=== PATIENT | male | born 1990 | race Caucasian/White ===

== ENCOUNTER 2017-01-20 11:28 | Inpatient (IN) | payer OTHER ==
--- NOTE | 2017-01-20 12:05 | PDOC ---
History of Present Illness - General History Source: Patient Exam Limitations: No Limitations - History of Present Illness Initial Comments: 01/20/17 12:09 The patient is a 26 year old male, with no significant past medical history who presents to the emergency department with abdominal pain and nausea since last night. The patient reports having sharp pain on his right side that radiates to his lower back area. He ranks his pain a 7/10 in pain intensity. He denies any recent fevers, chills, headache or dizziness. He denies any recent vomit, diarrhea or constipation. He denies any recent chest pain or shortness of breath. He denies any recent dysuria, frequency, urgency or hematuria. Allergies: NKA Past surgical history: None reported. Social History: Current everyday. Denies EtOH use and recreational drug use. <Rico Olvera - Last Filed: 01/20/17 12:09> <Glenroy Strickland - Last Filed: 01/20/17 15:24> - General Chief Complaint: Pain Stated Complaint: ABD PAIN Past History <Rico Olvera - Last Filed: 01/20/17 12:09> - Past Medical History Other medical history: NONE - Suicide/Smoking/Psychosocial Hx Smoking History: Current some day smoker Number of Cigarettes Smoked Daily: 2 Information on smoking cessation initiated: No Hx Alcohol Use: Yes (SOCIAL) Drug/Substance Use Hx: No <Glenroy Strickland - Last Filed: 01/20/17 15:24> - Past Medical History Allergies/Adverse Reactions: Allergies Allergy/AdvReac Type Severity Reaction Status Date / Time No Known Allergies Allergy Verified 01/20/17 11:37 Home Medications: Ambulatory Orders NK [No Known Home Medication] 01/20/17 Review of Systems - Review of Systems Able to Perform ROS?: Yes Comments:: 01/20/17 12:10 GENERAL/CONSTITUTIONAL: No fever or chills. No weakness. HEAD, EYES, EARS, NOSE AND THROAT: No change in vision. No ear pain or discharge. No sore throat. CARDIOVASCULAR: No chest pain or shortness of breath. RESPIRATORY: No cough, wheezing, or hemoptysis. GASTROINTESTINAL: +abdominal pain and nausea. No vomiting, diarrhea or constipation. GENITOURINARY: No dysuria, frequency, or change in urination. MUSCULOSKELETAL: No joint or muscle swelling or pain. No neck or back pain. SKIN: No rash NEUROLOGIC: No headache, vertigo, loss of consciousness, or change in strength/ sensation. ENDOCRINE: No increased thirst. No abnormal weight change. HEMATOLOGIC/LYMPHATIC: No anemia, easy bleeding, or history of blood clots. ALLERGIC/IMMUNOLOGIC: No hives or skin allergy. <Rico Olvera - Last Filed: 01/20/17 12:09> *Physical Exam - Vital Signs Last Vital Signs Temp Pulse Resp BP Pulse Ox 98.4 F 79 20 127/75 97 01/20/17 11:34 01/20/17 11:34 01/20/17 11:34 01/20/17 11:34 01/20/17 11:34 - Physical Exam Comments: 01/20/17 12:10 GENERAL: Awake, alert, and fully oriented, in no acute distress HEAD: No signs of trauma EYES: PERRLA, EOMI, sclera anicteric, conjunctiva clear ENT: Auricles normal inspection, hearing grossly normal, nares patent, oropharynx clear without exudates. Moist mucosa NECK: Normal ROM, supple, no lymphadenopathy, JVD, or masses LUNGS: Breath sounds equal, clear to auscultation bilaterally. No wheezes, and no crackles HEART: Regular rate and rhythm, normal S1 and S2, no murmurs, rubs or gallops ABDOMEN: Soft, tenderness RUQ, normoactive bowel sounds. No guarding, no rebound. No masses EXTREMITIES: Normal range of motion, no edema. No clubbing or cyanosis. No cords, erythema, or tenderness NEUROLOGICAL: Cranial nerves II through XII grossly intact. Normal speech, normal gait SKIN: Warm, Dry, normal turgor, no rashes or lesions noted. <Rico Olvera - Last Filed: 01/20/17 12:09> - Vital Signs Last Vital Signs Temp Pulse Resp BP Pulse Ox 98.4 F 79 20 127/75 97 01/20/17 11:34 01/20/17 11:34 01/20/17 11:34 01/20/17 11:34 01/20/17 11:34 <Glenroy Strickland - Last Filed: 01/20/17 15:24> ED Treatment Course - LABORATORY CBC & Chemistry Diagram: 01/20/17 12:30 01/20/17 12:30 <Glenroy Strickland - Last Filed: 01/20/17 15:24> *DC/Admit/Observation/Transfer - Attestations Scribe Attestion: 01/20/17 12:10 Documentation prepared by Rico Olvera, acting as medical secretary for Glenroy Strickland DO. <Rico Olvera - Last Filed: 01/20/17 12:09> - Discharge Dispostion Admit: Yes - Attestations Physician Attestion: 01/20/17 12:05 I, Dr. Glenroy Strickland, attest that this document has been prepared under my direction and personally reviewed by me in its entirety. I further attest, that it accurately reflects all work, treatment, procedures and medical decision -making performed by me. <Glenroy Strickland - Last Filed: 01/20/17 15:24> Diagnosis at time of Disposition: Intractable abdominal pain, Biliary colic Gallstone Qualifiers: Cholecystitis presence: with cholecystitis Cholecystitis acuity: acute and chronic Biliary obstruction: without biliary obstruction Qualified Code(s): K80.12 - Calculus of gallbladder with acute and chronic cholecystitis without obstruction - Discharge Dispostion Condition at time of disposition: Unchanged/Unknown
[2017-01-20] MEDS ORDERED: ONDANSETRON 4 MG/2 ML VIAL IVPUSH ONE ×2 (12:09→15:37)
[2017-01-20] MEDS ORDERED: HYDROmorphone HCL CARPU-JECT 1 MG/1 ML DISP.SYRIN IVPUSH ONE (12:09)
[2017-01-20] MEDS ORDERED: SODIUM CHLORIDE 1,000 ML IV STA (12:09)
[2017-01-20] MEDS ORDERED: ONDANSETRON 4 MG/2 ML VIAL ONE ×2 (12:39→15:49)
[2017-01-20] MEDS ORDERED: HYDROmorphone HCL CARPU-JECT 1 MG/1 ML DISP.SYRIN ONE ×2 (12:39→15:49)
[2017-01-20 13:13] LABS: BASOPHIL 0.3 % (0-2.0); EOSINOPHIL 2.2 % (0-4.5); MCHC 30.2 g/dl (32.0-35.9); MEAN CELL VOLUME 61.6 fl (80-96); MEAN PLT VOLUME 9.1 fl (7.5-11.1); NEUTROPHILS 62.2 % (42.8-82.8); PLATELET COUNT 232 K/MM3 (134-434); RDW 19.8 % (11.9-15.9); WHITE BLOOD COUNT 7.1 K/mm3 (4.0-10.0)
[2017-01-20 13:22] LABS: MCH 18.6 pg (25.7-33.7)
[2017-01-20 13:34] LABS: INR 1.13 (0.82-1.09); PROTHROMBIN TIME (PATIENT) 12.5 SEC (9.98-11.88)
[2017-01-20 13:43] LABS: ANISOCYTOSIS 1+; HYPOCHROMIA 1+; MICROCYTOSIS 1+; PLATELET ESTIMATE ADEQUATE (NORMAL); POLYCHROMASIA F
[2017-01-20 14:03] LABS: ALBUMIN 3.6 g/dl (3.4-5.0); ALK PHOS 86 U/L (45-117); ANION GAP 12 (8-16); BILIRUBIN,TOTAL 0.4 mg/dL (0.2-1.0); CALCIUM 8.9 mg/dL (8.5-10.1); CO2 22 mmol/L (21-32); CREATININE 0.7 mg/dL (0.7-1.3); GLUCOSE,RANDOM 89 mg/dL (74-106); SGOT/AST 23 U/L (15-37); SGPT/ALT 33 U/L (12-78); TOT PROT 6.8 g/dl (6.4-8.2)
--- NOTE | 2017-01-20 15:30 | HP ---
CHIEF COMPLAINT: abdominal pain PCP:none HISTORY OF PRESENT ILLNESS: 26 yo M with no significant PMHx who presents to the ED with abdominal pain and nausea since last night.Patient reports sharp intermittent 7/10 RUQ abd pain that radiated to back.No alleviating or aggravating factors. Pain started after a fatty meal of [place] fries and chicken wings. Endorses nausea but no vomiting. No such pain in past. He denies any CP,BREAUX, SOB, palpitations, diarrhea or constipation. ER course was notable for: (1)Gallbladder US shows cholelithiasis. (2)Needed IV dilaudid for pain control (3) surgery consulted - Dr. Benitez Recent Travel:denies PAST MEDICAL HISTORY:none PAST SURGICAL HISTORY:none Social History: Smokin pack year history, currently 5-6 cig/week Alcohol:socially Drugs: denies Family History: Mother( gallstones) ; Father (HTN) Allergies No Known Allergies Allergy (Verified 01/20/17 11:37) HOME MEDICATIONS: Home Medications Medication Instructions Recorded NK [No Known Home Medication] 01/20/17 REVIEW OF SYSTEMS CONSTITUTIONAL: Absent: fever, chills, diaphoresis, generalized weakness, malaise, loss of appetite, weight change HEENT: Absent: rhinorrhea, nasal congestion, throat pain, throat swelling, difficulty swallowing, mouth swelling, ear pain, eye pain, visual changes CARDIOVASCULAR: Absent: chest pain, syncope, palpitations, irregular heart rate, lightheadedness , peripheral edema RESPIRATORY: Absent: cough, shortness of breath, dyspnea with exertion, orthopnea, wheezing, stridor, hemoptysis GASTROINTESTINAL:abdominal pain, nausea Absent: , abdominal distension,, vomiting, diarrhea, constipation, melena, hematochezia GENITOURINARY: Absent: dysuria, frequency, urgency, hesitancy, hematuria, flank pain, genital pain MUSCULOSKELETAL: Absent: myalgia, arthralgia, joint swelling, back pain, neck pain SKIN: Absent: rash, itching, pallor HEMATOLOGIC/IMMUNOLOGIC: Absent: easy bleeding, easy bruising, lymphadenopathy, frequent infections ENDOCRINE: Absent: unexplained weight gain, unexplained weight loss, heat intolerance, cold intolerance NEUROLOGIC: Absent: headache, focal weakness or paresthesias, dizziness, unsteady gait, seizure, mental status changes, bladder or bowel incontinence PSYCHIATRIC: Absent: anxiety, depression, suicidal or homicidal ideation, hallucinations. PHYSICAL EXAMINATION Vital Signs - 24 hr 01/20/17 11:34 Temperature 98.4 F Pulse Rate 79 Respiratory 20 Rate Blood Pressure 127/75 O2 Sat by Pulse 97 Oximetry (%) GENERAL: Awake, alert, and fully oriented, in no acute distress. HEAD: Normal with no signs of trauma. EYES: PERRLA, EOMI , sclera anicteric, conjunctiva clear. No lid lag. EARS, NOSE, THROAT: Moist mucous membranes. NECK:supple, No JVD LUNGS: CTAB. No wheezes, and no crackles. No accessory muscle use. HEART: RRR, normal S1 and S2 , no m/g/r ABDOMEN: Soft, RUQ tenderness, not distended, normoactive bowel sounds, no guarding, no rebound, no masses. No hepatomegaly or splenomegaly. MUSCULOSKELETAL: Normal range of motion at all joints. right martin tenderness. No CVA tenderness. UPPER EXTREMITIES: 2+ pulses, warm, well-perfused. No cyanosis. No clubbing. No peripheral edema. LOWER EXTREMITIES: 2+ pulses, warm, well-perfused. No calf tenderness. No peripheral edema. NEUROLOGICAL: Cranial nerves II-XII intact. Normal speech. gait not observed. PSYCHIATRIC: Cooperative. Good eye contact. Appropriate mood and affect. Laboratory Results - last 24 hr 01/20/17 01/20/17 01/20/17 12:30 12:30 12:30 WBC 7.1 RBC 5.67 H Hgb 10.5 L Hct 34.9 L MCV 61.6 L MCH 18.6 L MCHC 30.2 L RDW 19.8 H Plt Count 232 MPV 9.1 Neutrophils % 62.2 Lymphocytes % 26.5 Monocytes % 8.8 Eosinophils % 2.2 Basophils % 0.3 Hypochromia 1+ Platelet Estimate Adequate Platelet Comment No clumping noted Polychromasia F Anisocytosis 1+ Microcytosis 1+ PT with INR 12.50 H INR 1.13 Sodium 138 Potassium 3.8 Chloride 104 Carbon Dioxide 22 Anion Gap 12 BUN 7 Creatinine 0.7 Creat Clearance w eGFR > 60 Random Glucose 89 Calcium 8.9 Total Bilirubin 0.4 AST 23 ALT 33 Alkaline Phosphatase 86 Total Protein 6.8 Albumin 3.6 Lipase 146 Blood Type Antibody Screen 01/20/17 12:30 WBC RBC Hgb Hct MCV MCH MCHC RDW Plt Count MPV Neutrophils % Lymphocytes % Monocytes % Eosinophils % Basophils % Hypochromia Platelet Estimate Platelet Comment Polychromasia Anisocytosis Microcytosis PT with INR INR Sodium Potassium Chloride Carbon Dioxide Anion Gap BUN Creatinine Creat Clearance w eGFR Random Glucose Calcium Total Bilirubin AST ALT Alkaline Phosphatase Total Protein Albumin Lipase Blood Type O POSITIVE Antibody Screen Negative ASSESSMENT/PLAN: The patient is a 26 year old male, with no significant past medical history who presents to the emergency department with abdominal pain and nausea since last night admitted to med/surg for cholelithiasis and intractable abdominal pain for possible cholecystectomy. Problem List - Problem (1) Cholelithiasis Assessment/Plan: * US showed stones but no signs of cholecystitis. * Requires IV pain meds * Dr. Benitez consulted will perform cholecystectomy * NPO for now. * Zofran for nausea. * Coags and type/screen sent. (2) Biliary colic (3) Intractable abdominal pain Visit type - Emergency Visit Emergency Visit: Yes ED Registration Date: 01/20/17 Care time: The patient presented to the Emergency Department on the above date and was hospitalized for further evaluation of their emergent condition. - New Patient This patient is new to me today: Yes Date on this admission: 01/20/17 - Critical Care Critical Care patient: No
[2017-01-20] MEDS ORDERED: HYDROmorphone HCL CARPU-JECT 1 MG/1 ML DISP.SYRIN IVPB ONE (15:37)
[2017-01-20] MEDS ORDERED: ONDANSETRON 4 MG/2 ML VIAL IVPB PRN (16:00)
[2017-01-20] MEDS ORDERED: HYDROmorphone HCL CARPU-JECT 1 MG/1 ML DISP.SYRIN IVPUSH PRN (16:00)
[2017-01-20] MEDS: SODIUM CHLORIDE 1,000 ML IV SCH (16:48)
--- NOTE | 2017-01-20 17:13 | HP ---
CHIEF COMPLAINT: Abdominal pain PCP: HISTORY OF PRESENT ILLNESS: The patient is a 26 yo m w/ no PMH who comes into the ED c/o abdominal pain and nausea for the past 1 day. The patient states that at 12AM this morning, he began to experience squeezing, 8/10 abdominal pain in his RUQ which radiated along his flank and to his back on the right. This pain eventually migrated to the right lower quadrant over time. The patient states that the pain was constant and not relieved by any intervention but went away at around 5 am. The pain returned at 10am and the patient decided to come to the ED. During his trip to the hospital, the pain began to be associated with nausea. The patient had no major changes in his diet during this time and does not associate the pain with eating. He does endorse, however, having a diet which consists primarily pizza and other takeout foods. His last meal was yesterday evening. He has had several similar episodes of this pain in the past, but they were never this severe and always went away spontaneously. The patient denies chest pain, shortness of breath, fever, chills, diarrhea or sick contacts. ER course was notable for: (1) RUQ u/s showing cholelithiasis (2) (3) Recent Travel: PAST MEDICAL HISTORY: -none PAST SURGICAL HISTORY: -none Social History: Smoking: smokes some days with an average of 2 cigarettes per day. Alcohol: denies Drugs: denies Family History: non-contributory Allergies No Known Allergies Allergy (Verified 01/20/17 11:37) HOME MEDICATIONS: Home Medications Medication Instructions Recorded NK [No Known Home Medication] 01/20/17 REVIEW OF SYSTEMS CONSTITUTIONAL: Absent: fever, chills, diaphoresis, generalized weakness, malaise, loss of appetite, weight change HEENT: Absent: rhinorrhea, nasal congestion, throat pain, throat swelling, difficulty swallowing, mouth swelling, ear pain, eye pain, visual changes CARDIOVASCULAR: Absent: chest pain, syncope, palpitations, irregular heart rate, lightheadedness , peripheral edema RESPIRATORY: Absent: cough, shortness of breath, dyspnea with exertion, orthopnea, wheezing, stridor, hemoptysis GASTROINTESTINAL: Absent: abdominal distension, vomiting, diarrhea, constipation, melena, hematochezia GENITOURINARY: Absent: dysuria, frequency, urgency, hesitancy, hematuria, flank pain, genital pain MUSCULOSKELETAL: Absent: myalgia, arthralgia, joint swelling, back pain, neck pain SKIN: Absent: rash, itching, pallor HEMATOLOGIC/IMMUNOLOGIC: Absent: easy bleeding, easy bruising, lymphadenopathy, frequent infections ENDOCRINE: Absent: unexplained weight gain, unexplained weight loss, heat intolerance, cold intolerance NEUROLOGIC: Absent: headache, focal weakness or paresthesias, dizziness, unsteady gait, seizure, mental status changes, bladder or bowel incontinence PSYCHIATRIC: Absent: anxiety, depression, suicidal or homicidal ideation, hallucinations. PHYSICAL EXAMINATION Vital Signs - 24 hr 01/20/17 01/20/17 15:34 16:33 Temperature 97.3 F L Pulse Rate [ 55 L 52 L Apical] Blood Pressure 127/80 137/91 [Left Arm] O2 Sat by Pulse 96 98 Oximetry (%) GENERAL: Awake, alert, and fully oriented, in no acute distress. HEAD: Normal with no signs of trauma. EYES: extraocular movements intact, sclera anicteric, conjunctiva clear. No lid lag. NECK: Normal range of motion, supple, no JVD. LUNGS: Breath sounds equal, clear to auscultation bilaterally. No wheezes, and no crackles. No accessory muscle use. HEART: Regular rate and rhythm, normal S1 and S2 without murmur, rub or gallop. ABDOMEN: Soft, tenderness to palpation in right quadrants. Rowe's sign negative, not distended, normoactive bowel sounds, no guarding, no rebound, no masses. MUSCULOSKELETAL: Normal range of motion at all joints. No bony deformities or tenderness. No CVA tenderness. UPPER EXTREMITIES: 2+ pulses, warm, well-perfused. No cyanosis. No clubbing. No peripheral edema. LOWER EXTREMITIES: 2+ pulses, warm, well-perfused. No calf tenderness. No peripheral edema. NEUROLOGICAL: Cranial nerves II-x intact. Normal speech. Normal gait. PSYCHIATRIC: Cooperative. Good eye contact. Appropriate mood and affect. SKIN: Warm, dry, normal turgor, no rashes or lesions noted, normal capillary refill. ASSESSMENT/PLAN: This is a 26 yo m w/ no PMH who comes in complaining of colicky abdominal pain on the right side which radiates to the back. #billiary colic 2/2 cholelithiasis -RUQ u/s shows cholelithiasis w/o cholecystitis or dilation of billiary tree -afebrile, no white count; no indication for ABX at this time -Dr. Benitez consulted, has accepted patient for lap natalee. -NPO -NS @ 100 -dilaudid 1mg Q4 PRN pain -AM CBC, CMP, MAG, PHOS -zofran 4 mg Q6 PRN nausea #FEN -NS @ 100 -monitor lytes -NPO #Prophylaxsis -SCDs -no indication for GI prophy #Dispo -admit to med surg for lap natalee Problem List - Problem (1) Biliary colic Code(s): K80.50 - CALCULUS OF BILE DUCT W/O CHOLANGITIS OR CHOLECYST W/O OBST (2) Cholelithiasis Code(s): K80.20 - CALCULUS OF GALLBLADDER W/O CHOLECYSTITIS W/O OBSTRUCTION Visit type - Emergency Visit Emergency Visit: Yes ED Registration Date: 01/20/17 Care time: The patient presented to the Emergency Department on the above date and was hospitalized for further evaluation of their emergent condition. - New Patient This patient is new to me today: Yes Date on this admission: 01/20/17 - Critical Care Critical Care patient: No
--- NOTE | 2017-01-20 17:38 | PN ---
Teaching Attending Note Name of Resident: Wilfredo Baxter ATTENDING PHYSICIAN STATEMENT I saw and evaluated the patient. I reviewed the resident's note and discussed the case with the resident. I agree with the resident's findings and plan as documented. SUBJECTIVE:26yo M with no PMH presented with RUQ pain. started last night, cramping 8/10 pain radiating down his R side. Pain started last night but was able to sleep. was worse this AM assoc with nausea and vomiting. states he been having intermittent pain not as severe over the past year which would self resolve. denies CP, SOB, fever, chills, C/D OBJECTIVE: Last Vital Signs Temp Pulse Resp BP Pulse Ox 97.3 F L 52 L 20 137/91 98 01/20/17 16:33 01/20/17 16:33 01/20/17 11:34 01/20/17 16:33 01/20/17 16:33 General NAD CV S1 S2 RRR no murmur/rub/gallop Lungs CTA B/L no wheezing/rales/rhonchi Abdomen soft +RLQ and LLQ pain no rebound or guarding. negative rovsing sign. negative rae sign. hypoactive BS ASSESSMENT AND PLAN: 26yo M with no PMH presented to the ER with RUQ pain 1. Biliary colic- medicine admission. U/s + cholethasis. no signs of acute cholecysitis. likely been having repeated episodes of biliary colic. NPO for laprasocopic cholecystectomy. start IVF, pain and nausea control. will hold abx at this time as no fever or leukocytosis. will f/u post-operative report. 2. Microcytic anemia- no signs of bleeding, with high RDW high liklihood for iron deficiency anemia. check iron studies. repeat Cbc. txn for hgb >7 3. Asymptomatic bradycardia- no report of history but has not seen PMD. will monitor for now 4. DVT ppx- EAM. can start post op lovenox
[2017-01-20 18:11] VITALS: BMI 38.6
[2017-01-20] MEDS: HYDROmorphone HCL CARPU-JECT 2 MG/1 ML DISP.SYRIN IVPUSH PRN ×2 (18:25→21:53)
--- NOTE | 2017-01-20 22:56 | CONSULT ---
Consult Consult Specialty:: Surgery Reason for Consultation:: RUQ pain - History of Present Illness History of Present Illness: 26 male presents to the ER with significant RUQ pain 1st episode No fevers/chills Pain only controlled somewhat with IV pain medication No nausea/vomiting U/S shows + gallstones - History Source History Provided By: Patient, Medical Record Limitations to Obtaining History: No Limitations - Alcohol/Substance Use Hx Alcohol Use: Yes (SOCIAL) - Smoking History Smoking history: Current some day smoker Aproximately how many cigarettes per day: 2 Home Medications - Allergies Allergies/Adverse Reactions: Allergies Allergy/AdvReac Type Severity Reaction Status Date / Time No Known Allergies Allergy Verified 01/20/17 11:37 - Home Medications Home Medications: Ambulatory Orders NK [No Known Home Medication] 01/20/17 Family Disease History - Family Disease History Family History: Denies Review of Systems - Review of Systems Constitutional: denies: Chills, Fever HENT: reports: No Symptoms Neck: reports: No Symptoms Cardiovascular: denies: Chest Pain Respiratory: denies: Cough Gastrointestinal: reports: Abdominal Pain. denies: Diarrhea, Nausea, Vomiting Integumentary: reports: No Symptoms Neurological: denies: Change in LOC Pain Intensity: 4 Physical Exam Vital Signs: Vital Signs Temperature 98.4 F 01/20/17 18:14 Pulse Rate 58 L 01/20/17 18:14 Respiratory Rate 20 01/20/17 18:14 Blood Pressure 137/72 01/20/17 18:14 O2 Sat by Pulse Oximetry (%) 100 01/20/17 19:28 Constitutional: Yes: No Distress, Calm Neck: Yes: WNL Cardiovascular: Yes: Regular Rate and Rhythm Respiratory: Yes: Regular Gastrointestinal: Yes: Soft, Tenderness (RUQ). No: Tenderness, Rebound Extremities: Yes: WNL Neurological: Yes: Alert, Oriented Labs: CBC,CMP WBC 7.1 K/mm3 (4.0-10.0) 01/20/17 12:30 RBC 5.67 M/mm3 (4.00-5.60) H 01/20/17 12:30 Hgb 10.5 GM/dL (11.7-16.9) L 01/20/17 12:30 Hct 34.9 % (35.4-49) L 01/20/17 12:30 MCV 61.6 fl (80-96) L 01/20/17 12:30 MCH 18.6 pg (25.7-33.7) L 01/20/17 12:30 MCHC 30.2 g/dl (32.0-35.9) L 01/20/17 12:30 RDW 19.8 % (11.9-15.9) H 01/20/17 12:30 Plt Count 232 K/MM3 (134-434) 01/20/17 12:30 MPV 9.1 fl (7.5-11.1) 01/20/17 12:30 Neutrophils % 62.2 % (42.8-82.8) 01/20/17 12:30 Lymphocytes % 26.5 % (8-40) 01/20/17 12:30 Monocytes % 8.8 % (3.8-10.2) 01/20/17 12:30 Eosinophils % 2.2 % (0-4.5) 01/20/17 12:30 Basophils % 0.3 % (0-2.0) 01/20/17 12:30 Hypochromia 1+ 01/20/17 12:30 Platelet Estimate Adequate (NORMAL) 01/20/17 12:30 Platelet Comment No clumping noted 01/20/17 12:30 Polychromasia F 01/20/17 12:30 Anisocytosis 1+ 01/20/17 12:30 Microcytosis 1+ 01/20/17 12:30 Sodium 138 mmol/L (136-145) 01/20/17 12:30 Potassium 3.8 mmol/L (3.5-5.1) 01/20/17 12:30 Chloride 104 mmol/L (98-107) 01/20/17 12:30 Carbon Dioxide 22 mmol/L (21-32) 01/20/17 12:30 Anion Gap 12 (8-16) 01/20/17 12:30 BUN 7 mg/dL (7-18) 01/20/17 12:30 Creatinine 0.7 mg/dL (0.7-1.3) 01/20/17 12:30 Creat Clearance w eGFR > 60 (>60) 01/20/17 12:30 Random Glucose 89 mg/dL (74-106) 01/20/17 12:30 Calcium 8.9 mg/dL (8.5-10.1) 01/20/17 12:30 Total Bilirubin 0.4 mg/dL (0.2-1.0) 01/20/17 12:30 AST 23 U/L (15-37) 01/20/17 12:30 ALT 33 U/L (12-78) 01/20/17 12:30 Alkaline Phosphatase 86 U/L (45-117) 01/20/17 12:30 Total Protein 6.8 g/dl (6.4-8.2) 01/20/17 12:30 Albumin 3.6 g/dl (3.4-5.0) 01/20/17 12:30 Lipase 146 U/L (73-393) 01/20/17 12:30 Imaging - Results Ultrasound: Report Reviewed, Image Reviewed Problem List - Problems (1) Biliary colic Code(s): K80.50 - CALCULUS OF BILE DUCT W/O CHOLANGITIS OR CHOLECYST W/O OBST (2) Intractable abdominal pain Code(s): R10.9 - UNSPECIFIED ABDOMINAL PAIN Assessment/Plan 26 male with biliary colic and significant pain NPO IV fluids Pain control For cholecystectomy in am Agrees
[2017-01-21] MEDS: HYDROmorphone HCL CARPU-JECT 2 MG/1 ML DISP.SYRIN IVPUSH PRN ×6 (00:59→17:02)
[2017-01-21] MEDS: SODIUM CHLORIDE 1,000 ML IV SCH ×2 (02:50→14:30)
[2017-01-21 07:28] LABS: BASOPHIL 0.4 % (0-2.0); EOSINOPHIL 1.6 % (0-4.5); MCHC 30.4 g/dl (32.0-35.9); MEAN CELL VOLUME 62.9 fl (80-96); MEAN PLT VOLUME 8.5 fl (7.5-11.1); NEUTROPHILS 64.8 % (42.8-82.8); PLATELET COUNT 215 K/MM3 (134-434); WHITE BLOOD COUNT 6.1 K/mm3 (4.0-10.0)
[2017-01-21 07:36] LABS: MCH 19.1 pg (25.7-33.7)
[2017-01-21 08:00] LABS: ALBUMIN 3.2 g/dl (3.4-5.0); ANION GAP 5 (8-16); BILIRUBIN,TOTAL 0.5 mg/dL (0.2-1.0); CALCIUM 8.4 mg/dL (8.5-10.1); CO2 27 mmol/L (21-32); CREATININE 0.8 mg/dL (0.7-1.3); GLUCOSE,RANDOM 89 mg/dL (74-106); MAGNESIUM 1.8 mg/dL (1.8-2.4); PHOSPHOROUS 3.8 mg/dL (2.5-4.9); SGOT/AST 22 U/L (15-37); SGPT/ALT 28 U/L (12-78); TOT PROT 6.1 g/dl (6.4-8.2)
[2017-01-21 08:01] LABS: ALK PHOS 71 U/L (45-117)
[2017-01-21 13:00] LABS: URINE APPEARANCE CLEAR; URINE BILIRUBIN NEGATIVE (NEGATIVE); URINE BLOOD NEGATIVE (NEGATIVE); URINE COLOR LTYELLOW; URINE GLUCOSE (UA) NEGATIVE (NEGATIVE); URINE KETONE NEGATIVE (NEGATIVE); URINE LEUK ESTERASE NEGATIVE (NEGATIVE); URINE NITRITE NEGATIVE (NEGATIVE); URINE PROTEIN NEGATIVE (NEGATIVE); URINE UROBILINOGEN NEGATIVE mg/dL (0.2-1.0)
--- NOTE | 2017-01-21 15:00 | PN ---
Teaching Attending Note Name of Resident: Wilfredo Baxter ATTENDING PHYSICIAN STATEMENT I saw and evaluated the patient. I reviewed the resident's note and discussed the case with the resident. I agree with the resident's findings and plan as documented. SUBJECTIVE:states pain is improved with pain medication. requesting to eat. admits to intermittent bright red blood mixed in his stool. states he was scheduled for colonoscopy 2 years ago but never followed through as he was scared. states he never sees it on the toilet paper or in the bowl. also admits to difficultly initiating urination. states has some "hesitation" when he goes to urinate and sensation of incomplete bladder emptying. denies Cp, SOB, fever, chills, melena or hematuria. has multiple family members with cancer, liver, gastric and lung. no hx of colon cancer states he has had significant weight loss over the summer but contributed to lifestyle changes and healthy diet. no loss of appetite, no lethargy or weakness OBJECTIVE: Last Vital Signs Temp Pulse Resp BP Pulse Ox 98.2 F 80 18 133/81 100 01/21/17 08:30 01/21/17 08:30 01/21/17 08:30 01/21/17 08:30 01/20/17 21:00 General mildly anxious Abdomen soft LLQ and RLQ tenderness radiating to the groin. no rebound or guarding. negative rovsing sign and rae sign rectal exam (done by resident in my presence) no external hemorrhoids. good rectal tone. no blood or stool in rectal vault. non palpable prostate ASSESSMENT AND PLAN: 26yo M with no PMH presented to the ER with RUQ pain 1. Biliary colic- with cholelithasis. improved with pain medication. has used significant amount of dilaudid. NPO for laprascopic cholecystectomy. Cont IVF, pain and nausea control. will hold abx at this time as no fever or leukocytosis. will f/u post-operative report. 2. Microcytic anemia- no signs of bleeding, AFTAB benign. Hgb stable. iron studies pending. f/u FOBT. will need GI follow up as outpatient for colonoscopy. txn for hgb >7 3. Asymptomatic bradycardia- improved with physical activity. now resolved. 4. URinary difficulty- check UA 5. DVT ppx- EAM.
--- NOTE | 2017-01-21 15:04 | PN ---
Physical Exam: SUBJECTIVE: Patient seen and examined at bedside. Patient is anxious today and wishes to leave AMA. I convinced him to stay and undergo a lap natalee today. He is also complaining of urinary hesitancy which developed while he was in the hospital. OBJECTIVE: Vital Signs Period Temp Pulse Resp BP Sys/Cage Pulse Ox Last 24 Hr 97.3 F-98.4 F 52-80 18-20 126-137/72-91 96-100 GENERAL: The patient is awake, alert, and fully oriented, in no acute distress. HEAD: Normal with no signs of trauma. EYES: extraocular movements intact, sclera anicteric, conjunctiva clear. No ptosis. NECK: Trachea midline, full range of motion, supple. LUNGS: Breath sounds equal, clear to auscultation bilaterally, no wheezes, no crackles, no accessory muscle use. HEART: Regular rate and rhythm, S1, S2 without murmur, rub or gallop. ABDOMEN: Soft, mild tenderness to palpation in all 4 quadrants, nondistended, normoactive bowel sounds, no guarding, no rebound. EXTREMITIES: 2+ pulses, warm, well-perfused, no edema. NEUROLOGICAL: Cranial nerves II through X grossly intact. Normal speech, gait not observed. PSYCH: Normal mood, normal affect. SKIN: Warm, dry, normal turgor, no rashes or lesions noted Laboratory Results - last 24 hr 01/21/17 01/21/17 01/21/17 06:00 06:00 06:00 WBC 6.1 RBC 5.31 Hgb 10.2 L Hct 33.4 L MCV 62.9 L MCH 19.1 L MCHC 30.4 L RDW 20.0 H Plt Count 215 MPV 8.5 Neutrophils % 64.8 Lymphocytes % 24.7 Monocytes % 8.5 Eosinophils % 1.6 Basophils % 0.4 Sodium 138 Potassium 4.0 Chloride 106 Carbon Dioxide 27 D Anion Gap 5 L BUN 7 Creatinine 0.8 Creat Clearance w eGFR > 60 Random Glucose 89 Calcium 8.4 L Phosphorus 3.8 Magnesium 1.8 Ferritin 3.433 L Total Bilirubin 0.5 D AST 22 ALT 28 Alkaline Phosphatase 71 Total Protein 6.1 L Albumin 3.2 L Urine Color Urine Appearance Urine pH Urine Protein Urine Glucose (UA) Urine Ketones Urine Blood Urine Nitrite Urine Bilirubin Urine Urobilinogen Stool Occult Blood 01/21/17 01/21/17 12:00 12:00 WBC RBC Hgb Hct MCV MCH MCHC RDW Plt Count MPV Neutrophils % Lymphocytes % Monocytes % Eosinophils % Basophils % Sodium Potassium Chloride Carbon Dioxide Anion Gap BUN Creatinine Creat Clearance w eGFR Random Glucose Calcium Phosphorus Magnesium Ferritin Total Bilirubin AST ALT Alkaline Phosphatase Total Protein Albumin Urine Color Ltyellow Urine Appearance Clear Urine pH 6.0 Urine Protein Negative Urine Glucose (UA) Negative Urine Ketones Negative Urine Blood Negative Urine Nitrite Negative Urine Bilirubin Negative Urine Urobilinogen Negative Stool Occult Blood Negative Active Medications Generic Name Dose Route Start Last Admin Trade Name Freq PRN Reason Stop Dose Admin Hydromorphone HCl 2 mg 01/20/17 18:05 01/21/17 13:50 Dilaudid Injection - IVPUSH 2 mg Q3H PRN Administration PAIN Sodium Chloride 1,000 mls @ 100 mls/hr 01/20/17 16:00 01/21/17 02:50 Normal Saline - IV 100 mls/hr ASDIR LIZ Administration Ondansetron HCl 4 mg 01/20/17 16:00 Zofran Injection IVPB Q6H PRN NAUSEA ASSESSMENT/PLAN: This is a 26 yo m w/ no PMH who comes in complaining of colicky abdominal pain on the right side which radiates to the back. #billiary colic 2/2 cholelithiasis -RUQ u/s shows cholelithiasis w/o cholecystitis or dilation of billiary tree -afebrile, no white count; no indication for ABX at this time -Dr. Benitez consulted, has accepted patient for lap natalee. -NPO -NS @ 100 -dilaudid 1mg Q4 PRN pain -zofran 4 mg Q6 PRN nausea #Microcytic anemia 2/2 to possible GI bleed -Patient endorses blood in the stool for the past year -FOBT negative -Rectal exam WNL -monitor CBC #Urinary hesitancy and lower abdominal pain -f/u bladder scan -no BPH appreciated on rectal exam -u/a not indicative of UTI #FEN -NS @ 100 -monitor lytes -NPO #Prophylaxsis -SCDs -no indication for GI prophy #Dispo -admit to med surg for lap natalee Problem List - Problems (1) Biliary colic Code(s): K80.50 - CALCULUS OF BILE DUCT W/O CHOLANGITIS OR CHOLECYST W/O OBST (2) Cholelithiasis Code(s): K80.20 - CALCULUS OF GALLBLADDER W/O CHOLECYSTITIS W/O OBSTRUCTION Visit type - Emergency Visit Emergency Visit: Yes ED Registration Date: 01/20/17 Care time: The patient presented to the Emergency Department on the above date and was hospitalized for further evaluation of their emergent condition. - New Patient This patient is new to me today: No - Critical Care Critical Care patient: No
[2017-01-21] MEDS ORDERED: MIDAZOLAM HCL 2 MG/2 ML SINGLE DOSE VIAL ONE (20:38)
[2017-01-21] MEDS ORDERED: ROCURONIUM BROMIDE 50 MG/5 ML VIAL ONE (20:39)
[2017-01-21] MEDS ORDERED: PROPOFOL 20 ML ONE ×2 (20:39→23:22)
[2017-01-21] MEDS ORDERED: ESMOLOL HCL 10 ML ONE (20:40)
[2017-01-21] MEDS ORDERED: ceFAZolin SODIUM 1 GM VIAL IVPB ONE (21:25)
[2017-01-21] MEDS ORDERED: LIDOCAINE HCL/PF 2% SDV 5ML VIAL ONE (22:06)
[2017-01-21] MEDS ORDERED: GLYCOPYRROLATE 0.2 MG/1 ML VIAL ONE ×2 (22:06→22:09)
[2017-01-21] MEDS ORDERED: DEXAMETHASONE SOD PHOSPHATE 4 MG/1 ML VIAL ONE (22:07)
[2017-01-21] MEDS ORDERED: HYDROmorphone HCL CARPU-JECT 1 MG/1 ML DISP.SYRIN IVPUSH PRN (22:16)
[2017-01-21] MEDS ORDERED: oxyCODONE HCL 5 MG TABLET PO PRN ×2 (22:16)
[2017-01-21] MEDS ORDERED: LACTATED RINGERS SOLUTION 1,000 ML IV SCH (22:30)
[2017-01-21] MEDS ORDERED: NEOSTIGMINE METHYLSULFATE 0.5 MG/ML - 10 ML MDV ONE (22:46)
[2017-01-21] MEDS ORDERED: BUPIVACAINE HCL/PF 0.5% (5MG/ML) 10 ML VIAL NR ONE (23:21)
--- NOTE | 2017-01-21 23:26 | OP ---
Operative Note - Note: Operative Date: 01/21/17 Pre-Operative Diagnosis: Biliary colic Operation: Laparoscopic cholecystectomy Post-Operative Diagnosis: Other (Acute cholecystitis) Surgeon: Travis Benitez Electronic Equipment Repairmen: Alyson Araya Anesthesia: General Specimens Removed: Gallbladder Estimated Blood Loss (mls): 10 Operative Report Dictated: Yes
[2017-01-21] MEDS ORDERED: ACETAMINOPHEN 325 MG TABLET (FP) PO PRN (23:27)
--- NOTE | 2017-01-21 23:44 | SURG ---
Surgery Hi Lo Driver Note Hi Lo Driver: Alyson Araya PA-C Date of Service: 01/21/17 Diagnosis: Biliary colic Procedure: Laparoscopic cholecystectomy I was present for the entirety of the operative procedure. For further detail, please refer to operative report. Visit type - Case Type Case Type: ED Admission - Emergency Emergency Visit: Yes ED Registration Date: 01/20/17 Care time: The patient presented to the Emergency Department on the above date and was hospitalized for further evaluation of their emergent condition. - New patient This patient is new to me today: Yes Date on this admission: 01/21/17 - Critical Care Critical Care patient: No
[2017-01-21] MEDS ORDERED: HYDROmorphone HCL CARPU-JECT 2 MG/1 ML DISP.SYRIN ONE (23:49)
[2017-01-21] MEDS: HYDROmorphone HCL CARPU-JECT 1 MG/1 ML DISP.SYRIN IVPB PRN (23:55)
[2017-01-22] MEDS ORDERED: ONDANSETRON 4 MG/2 ML VIAL IVPB PRN (00:03)
[2017-01-22] MEDS ORDERED: SODIUM CHLORIDE 1,000 ML IV SCH (00:03)
[2017-01-22] MEDS: oxyCODONE HCL 5 MG TABLET PO PRN ×2 (01:55→11:15)
[2017-01-22] MEDS: HYDROmorphone HCL CARPU-JECT 1 MG/1 ML DISP.SYRIN IVPB PRN ×2 (03:29→07:44)
[2017-01-22 07:48] LABS: MCHC 30.9 g/dl (32.0-35.9); MEAN CELL VOLUME 61.9 fl (80-96); MEAN PLT VOLUME 9.1 fl (7.5-11.1); PLATELET COUNT 247 K/MM3 (134-434); RDW 19.8 % (11.9-15.9); WHITE BLOOD COUNT 8.5 K/mm3 (4.0-10.0)
[2017-01-22 08:07] LABS: MCH 19.1 pg (25.7-33.7)
[2017-01-22 08:07] LABS: SERUM IRON 22 ug/dL (38-169); TOTAL IRON BINDING CAPACITY 347 ug/dL (250-450); UIBC 325 ug/dL (111-343)
[2017-01-22 08:50] LABS: ANION GAP 13 (8-16); CALCIUM 8.9 mg/dL (8.5-10.1); CO2 21 mmol/L (21-32); CREATININE 0.8 mg/dL (0.7-1.3); GLUCOSE,RANDOM 121 mg/dL (74-106)
--- NOTE | 2017-01-22 09:28 | PN ---
Progress Note (short form) - Note Progress Note: POD #1 - s/p laparoscopic cholecystectomy under general anesthesia. VSS. Pt. sitting comfortably on couch in the solarium. Pt. complaining of some right shoulder pain, most likely referred pain from the procedure. Pt. was reassured that pain should dissipate over the course of the day. Will follow up with Dr. Benitez. No apparent anesthetic complications noted. Continue current care.
--- NOTE | 2017-01-22 09:30 | SPEC ---
Repeat dictation Please see other dictation MTDD
--- NOTE | 2017-01-22 09:33 | SPEC ---
DATE OF OPERATION: 01/21/2017 SURGEON: Kera Benitez MD INKING MACHINE TENDER: TOM Mota PREOPERATIVE DIAGNOSES: Biliary colic. POSTOPERATIVE DIAGNOSIS: Acute cholecystitis. PROCEDURE: Laparoscopic cholecystectomy. SPECIMEN: Gallbladder. ESTIMATED BLOOD LOSS: 10 mL DRAINS: None. ANESTHESIA: General endotracheal. REASON FOR THE PROCEDURE: This is a 26-year-old gentleman who presented to the hospital with epigastric/right upper quadrant abdominal pain. He was found to have evidence of gallstones consistent with biliary colic. Because of this, he was consented for a laparoscopic, possible open cholecystectomy. RISKS AND BENEFITS: The risks and benefits of a laparoscopic, possible open cholecystectomy were explained. These included bleeding, infection, hernia, ID, DVT, PE, injury to surrounding structures including the liver, colon, bowel, bile ducts, vessel injury, nerve injury, bile leak, and retained stones as some of the possible complications. The patient understood and signed informed consents. DESCRIPTION OF PROCEDURE: The patient was placed supine on the operating room table. The patient underwent general endotracheal intubation. The abdomen was prepped and draped in the usual sterile fashion. A timeout was performed. A periumbilical incision was made, and a 5-mm optical trocar was inserted under direct visualization with the laparoscope. Pneumoperitoneum was then established. Subsequently, a 5-mm trocar was placed in the subxiphoid area and two 5-mm trocars were placed in the right upper quadrant. The 5-mm trocar at the periumbilical region was removed and a 10-mm trocar was inserted. The patient was placed in reverse Trendelenburg, right side up position. The gallbladder was noted and was retracted cephalad and laterally. Any overlying omental adhesions were carefully dissected. The peritoneum was dissected using electrocautery. The cystic duct followed by the cystic artery were circumferentially dissected, clipped and transected. The gallbladder was removed off the liver bed using electrocautery. Hemostasis of the liver bed and surrounding area was attained using electrocautery. The gallbladder was placed in an EndoCatch bag. Copious irrigation and suction were performed until clear. The gallbladder was removed from the abdominal cavity. The fascia at the 10-mm trocar site was closed using a 0-Vicryl suture. All incision sites were irrigated and Marcaine was injected. Hemostasis of all incision sites was noted. All incision sites were closed using 4-0 Biosyn. Sterile dressings were applied. The patient tolerated the procedure well and was transferred to the recovery room in stable condition. Of note, intraop, the gallbladder was noted to be inflamed and distended consistent with acute cholecystitis; therefore the postoperative diagnosis is acute cholecystitis. KERA BENITEZ M.D. [id number]
[2017-01-22] MEDS ORDERED: oxyCODONE HCL 5 MG TABLET PO ONE (12:30)
--- NOTE | 2017-01-22 12:40 | PN ---
Progress Note (short form) - Note Progress Note: POD 1 Complaining of right shoulder pain Explained that this is referred pain from the CO2 from laparoscopy- he understands Explained that he should ambulate and take deep breaths Abdominal pain controlled Vital Signs Period Temp Pulse Resp BP Sys/Cage Pulse Ox Last 24 Hr 97.5 F-99.9 F 62-94 16-20 123-149/60-86 94-100 Abd soft, dressings in place CBC, BMP 01/22/17 06:30 01/22/17 06:30 Can discharge home No lifting more than 10 pounds x 6 weeks Problem List - Problems (1) Biliary colic Code(s): K80.50 - CALCULUS OF BILE DUCT W/O CHOLANGITIS OR CHOLECYST W/O OBST (2) Intractable abdominal pain Code(s): R10.9 - UNSPECIFIED ABDOMINAL PAIN
--- NOTE | 2017-01-22 13:43 | PN ---
Teaching Attending Note Name of Resident: Wilfredo Baxter ATTENDING PHYSICIAN STATEMENT I saw and evaluated the patient. I reviewed the resident's note and discussed the case with the resident. I agree with the resident's findings and plan as documented. SUBJECTIVE:c/o diffuse abdominal pain worse on exertion. tolerating food. denies CP, SOB< fever, chills, N/V/C/D, no BM since surgery OBJECTIVE: Last Vital Signs Temp Pulse Resp BP Pulse Ox 98.0 F 94 H 18 146/81 96 01/22/17 09:00 01/22/17 09:00 01/22/17 09:00 01/22/17 09:00 01/22/17 09:00 General NAD Abdomen soft RUQ and RLQ tenderness. mild distention. bandages over surgical incisions clean and dry. rectal exam (done by resident in my presence) no external hemorrhoids. good rectal tone. no blood or stool in rectal vault. non palpable prostate ASSESSMENT AND PLAN: 26yo M with no PMH presented to the ER with RUQ pain 1. Biliary colic- with cholelithasis. s/p laprascopic cholecystectomy 01/21. no complications and tolerated surgery well. tolerating diet. requesting higher pain medications as "im a big dude". explained that pain should improve with time. risks assoc with narcotic use and dependency. risks assoc including fatigue and should not drive or operate heavy machinery. also side effect of constipation. should refer to instructions by surgeon for post-op care. 2. Microcytic anemia- no signs of bleeding, FOBT negative. Hgb stable. iron studies showing iron deficicency anemia. will start supplemental iron. risks of iron supplements include constipation and black tools. expressed concern with being iron deficient and that he should discuss with his doctor about further workup to determine if he has hematologic disorder or possible absorption problem. requested GI referral as he was told to have colonoscopy in the past which he never followed up with. informed will need repeat iron studies in 3 months. 3. Asymptomatic bradycardia- improved with physical activity. now resolved. 4. URinary difficulty- resolved. UA negative for infection 5. DVT ppx- EAM. 6. d/c home
[2017-01-22 14:36] VITALS: BP 139/80; PULSE 90; TEMP 97.3
--- NOTE | 2017-01-22 17:18 | DS ---
Physical Exam: SUBJECTIVE: Patient seen and examined at bedside. s/p lap natalee. tolerated procedure well. patient tolerating solid food well. OBJECTIVE: Vital Signs Period Temp Pulse Resp BP Sys/Cage Pulse Ox Last 24 Hr 97.3 F-99.3 F 62-94 16-20 123-149/60-86 94-100 PHYSICAL EXAM GENERAL: The patient is awake, alert, and fully oriented, in no acute distress. HEAD: Normal with no signs of trauma. EYES: PERRL, extraocular movements intact, sclera anicteric, conjunctiva clear. ENT: Ears normal, nares patent, oropharynx clear without exudates, moist mucous membranes. NECK: Trachea midline, full range of motion, supple. LUNGS: Breath sounds equal, clear to auscultation bilaterally, no wheezes, no crackles, no accessory muscle use. HEART: Regular rate and rhythm, S1, S2 without murmur, rub or gallop. ABDOMEN: Soft, nontender, nondistended, normoactive bowel sounds, no guarding, no rebound. surgical port sites free of erythema and discharge. EXTREMITIES: 2+ pulses, warm, well-perfused, no edema. NEUROLOGICAL: Cranial nerves II through X grossly intact. Normal speech, gait not observed. PSYCH: Normal mood, normal affect. SKIN: Warm, dry, normal turgor, no rashes or lesions noted. LABS Laboratory Results - last 24 hr 01/21/17 01/21/17 01/22/17 06:00 12:00 06:30 WBC 8.5 D RBC 5.66 H Hgb 10.8 L Hct 35.0 L MCV 61.9 L MCH 19.1 L MCHC 30.9 L RDW 19.8 H Plt Count 247 MPV 9.1 Sodium Potassium Chloride Carbon Dioxide Anion Gap BUN Creatinine Random Glucose Calcium Iron 22 L TIBC 347 Iron Saturation 6 L Urine Color Ltyellow Urine Appearance Clear Urine pH 6.0 Ur Specific Rock 1.020 Urine Protein Negative Urine Glucose (UA) Negative Urine Ketones Negative Urine Blood Negative Urine Nitrite Negative Urine Bilirubin Negative Urine Urobilinogen Negative 01/22/17 06:30 WBC RBC Hgb Hct MCV MCH MCHC RDW Plt Count MPV Sodium 138 Potassium 4.4 Chloride 104 Carbon Dioxide 21 D Anion Gap 13 BUN 8 Creatinine 0.8 Random Glucose 121 H D Calcium 8.9 Iron TIBC Iron Saturation Urine Color Urine Appearance Urine pH Ur Specific Rock Urine Protein Urine Glucose (UA) Urine Ketones Urine Blood Urine Nitrite Urine Bilirubin Urine Urobilinogen HOSPITAL COURSE: Date of Admission:01/20/17 The patient is a 26 yo m w/ no PMH who comes into the ED c/o abdominal pain and nausea for the past 1 day. He has had several similar episodes of this pain in the past, but they were never this severe and always went away spontaneously. RUQ ultrasound showed cholelithiasis. The patient was admitted for intractible abdominal pain and treated with dilaudid and zofran. He was taken to the OR for a lap natalee on 01/21/[address] Benitez. Patient tolerated the procedure well and began to eat solid food. Over the course of his admission, there was an incidental finding of an iron deficiency anemia which warrants additional outpatient follow up. The patient endorsed seeing blood in his stool for the past year which he had seen several doctors for. FOBT was negative as inpatient and his hemoglobin count remained stable throughout his stay. The patient was discharged home with instructions to follow up with Dr. Benitez and his PCP within one week. He was referred to a GI specialist if he wished to see him. He was sent home on iron supplementation, Percocet and laxatives. He was informed of the dangers of using prescription narcotics while operating heavy machinery or driving. Date of Discharge: 01/22/17 Minutes to complete discharge: 20 Discharge Summary Reason For Visit: INTRACTIABLE ABDOMINAL PAIN Condition: Improved - Instructions Diet, Activity, Other Instructions: [address] [place] [address] Travis Benitez M.D. [address] [place] [address],[address] Suit[address] [facility] [address] [facility] [place] [facility] Robotic, Bariatric and General Surgery Postoperative Instructions for General Surgery Activity: Resume normal everyday activity as tolerated. You may walk and climb stairs without any limitation. We encourage you to walk as often as you can Do not lift anything more than 10 pounds for 8 weeks. At that time, you can return to full activity, including the gym, without limitation. Do not drive a motor vehicle while taking prescribes narcotic pain medication. Wound Care: If you have a bandage in place, leave it on for 3 days. At that time you may remove the outer bandage. If there are strips of tape on the skin after removing the outer bandage, leave them in place. They will fall off by themselves. Do not remove them. If there is clear glue on the skin after removing the outer bandage, leave it in place. Do not pick at it or peel it off. You may shower after taking the outer bandage off, 3 days after your surgery. For male groin hernia patients: you may notice a black and blue discoloration of your testicles. This is normal and should resolve over the next week or two. If this persists, please call the office. Diet: You may continue your regular diet at home. If you have a history of high blood pressure, you should be on a low sodium diet. If you have a history of Diabetes Mellitus, you should be on a diabetic/sugar controlled diet. If you had your gallbladder removed, you should be on a low cholesterol/low fat diet. Medications/Pain Management: You may resume previous medications unless told otherwise. You may take the prescribed narcotic pain medication as needed. If the narcotic medication is not needed for pain control, you may take Tylenol. Avoid all other pain medications including Advil, Ibuprofen, Motrin, Aspirin, Naprosyn, Aleve, Celebrex. We are also sending you home with some iron supplements because your iron is low. You should take one of these pills daily for 3 months. We have given you a one month supply. Please visit your primary care doctor to obtain another prescription. These pills may make you constipated and may make your stool black. This is normal. Vomiting/Nausea: This may occur if you eat too fast, don't chew, or eat too much. Go back to fluids. If the vomiting or nausea persists, call the office. Constipation/Diarrhea: You may experience a change in bowel habits. Many things affect this, including taking pain medication. If either persist, call the office. Follow up: Call the office at [phone] for an appointment 2 weeks after your surgical procedure. You should also follow up with your primary care provider within one week of going home. You will need to get a repeat blood test in 3 months to check your blood iron levels. Your primary care physician can give you a prescription for this test. You were also concerned about some blood in your stool. You should follow up with your primary doctor or a GI doctor of your choice for this. We suggest you follow up with Dr. Lambert for GI. If you experience fevers, chills or if any of your symptoms get worse, please dimitri your doctor or return to the ED. Referrals: Travis Benitez MD [Staff Physician] - Vernon Lambert MD [Staff Physician] - Disposition: HOME - Home Medications Comprehensive Discharge Medication List: Ambulatory Orders Docusate Sodium [Colace -] 100 mg PO TID #90 capsule 01/21/17 Oxycodone HCl/Acetaminophen [Percocet 5-325 mg Tablet] 1 - 2 tab PO Q6H #28 tab MDD 4 01/21/17 Iron,Carbonyl [Feosol] 45 mg PO DAILY #30 tablet 01/22/17 Problem List - Problems (1) Biliary colic Code(s): K80.50 - CALCULUS OF BILE DUCT W/O CHOLANGITIS OR CHOLECYST W/O OBST (2) Cholelithiasis Code(s): K80.20 - CALCULUS OF GALLBLADDER W/O CHOLECYSTITIS W/O OBSTRUCTION This patient is new to me today: No Emergency Visit: Yes ED Registration Date: 01/20/17 Care time: The patient presented to the Emergency Department on the above date and was hospitalized for further evaluation of their emergent condition. Critical Care patient: No - Discharge Referral Referred to [facility] Med P.C.: No
--- NOTE | 2017-01-25 14:14 | PATH ---
Surgical Pathology Report Patient Name: CHELY WILSON Med. Rec. #: [id number] /Age/Gender: 1990 (Age: 26) / M Account: [id number] Location: [facility] MED/SURG Taken: 01/21/2017 Received: 01/22/2017 Reported: 01/25/2017 Physicians: Travis Benitez M.D. Specimen(s) Received GALLBLADDER Clinical History Cholecystitis Final Diagnosis GALLBLADDER, CHOLECYSTECTOMY: CHRONIC CHOLECYSTITIS, CHOLESTEROLOSIS, AND CHOLELITHIASIS. Electronically Signed Jose Maria Mora M.D. Gross Description Received in formalin, labeled "gallbladder," is a 8.5 x 3.6 x 3.3 cm. gallbladder with a 0.2 cm. in length portion of cystic duct attached. The outer surface is trujillo green and varies from smooth to shaggy. The lumen contains green, tenacious bile as well as multiple yellow, irregular choleliths averaging 0.1 cm in greatest dimension. The mucosa is dark green with gold cholesterol stippling. The wall of the gallbladder is focally edematous and ranges from 0.1-0.5 cm. in thickness. Supervisor Purification sections are submitted in one cassette. 01/22/201701/22/2017
== END 2017-01-22 14:41 | disposition home or self-care (01) | DRG 263 ==
LOC: JER 11:28 → JERBED 15:11 → J8W 18:10
PROVIDERS: ADMIT Internal Medicine; ATTEND Internal Medicine
PROC: 0FT44ZZ Resection of Gallbladder, Percutaneous Endoscopic Approach (ICD-10-PCS; principal; 2017-01-21 18:00)
DX: K80.00 Calculus of gallbladder with acute cholecystitis without obstruction (principal); F17.210 Nicotine dependence, cigarettes, uncomplicated; D50.9 Iron deficiency anemia, unspecified; R39.11 Hesitancy of micturition; R39.198 Other difficulties with micturition; R00.1 Bradycardia, unspecified; M25.511 Pain in right shoulder
CPT/HCPCS: 36415; 76705-TC; 80048; 80053; 81003; 82272; 82728; 83540; 83550; 83690; 83735; 84100; 85025; 85027; 85610; 86850; 86900; 86901; 88304-TC; 94010; 94760; 99283-25